=== PATIENT | male | born 1975 | race Caucasian/White ===

== ENCOUNTER 2021-12-12 20:31 | Inpatient (IN) ==
[2021-12-13] MEDS ORDERED: Naloxone 0.4 MG/ML INJ IVP PRN (01:05)
[2021-12-13] MEDS ORDERED: Melatonin 3 MG TABLET PO PRN (01:05)
[2021-12-13] MEDS ORDERED: Dextrose Gel 15 GM/37.5 ML TUBE PO PRN ×2 (01:15)
[2021-12-13] MEDS ORDERED: *HR* Dextrose 50 % in Water (Syg) 50 ML SYRINGE IVP PRN (01:15)
[2021-12-13] MEDS ORDERED: D5% in Water 1,000 ML IVC PRN (01:15)
[2021-12-13] MEDS ORDERED: *HR* Promethazine 25 MG/ML VIAL IM PRN (01:18)
[2021-12-13] MEDS ORDERED: MOM Conc 10 ML UD.LIQ PO PRN (01:18)
[2021-12-13] MEDS ORDERED: Ibuprofen 400 MG TABLET PO PRN (01:18)
[2021-12-13] MEDS ORDERED: Saliva Stimulant 44.3ml BOTTLE PO PRN (02:21)
[2021-12-13] MEDS: *HR* OxyCODONE Immed Rel 5 MG TABLET PO PRN ×3 (02:30→19:24)
[2021-12-13 04:57] LABS: Basophils # 0.1 K/mcL (0.0-0.2); Basophils % 0.6 %; Eosinophils # 0.2 K/mcL (0.0-0.6); Eosinophils % 2.6 %; Hematocrit 34.6 % (37.5-50.1); Hemoglobin 11.8 g/dL (12.9-16.9); Immature Granulocytes % 0.2 % (0-4); Lymphocytes # 1.7 K/mcL (0.6-4.6); Lymphocytes % 19.1 %; Mean Corpuscular HGB Conc 34.1 g/dL (31.6-35.5); Mean Corpuscular Hemoglobin 29.2 pg (28.0-33.3); Mean Corpuscular Volume 85.6 fL (83.0-100.0); Mean Platelet Volume 8.4 fL (9.4-12.4); Monocytes % 10.6 %; Platelet Count 256 K/mcL (140-400); Red Blood Count 4.04 M/mcL (4.19-5.50); Segmented Neutrophils % 66.9 %
[2021-12-13 05:04] LABS: INR 1.1; Prothrombin Time 11.9 Seconds (9.4-12.1)
[2021-12-13 05:06] LABS: Activated Partial Thrombo Time 29.8 Seconds (26.0-36.0)
[2021-12-13 05:14] LABS: Alanine Aminotransferase 11 Units/L (7-52); Albumin 3.5 g/dL (3.5-5.7); Albumin/Globulin Ratio 1.2 (1.1-2.2); Alkaline Phosphatase 120 Units/L (34-104); Aspartate Amino Transferase 14 Units/L (13-39); BUN/Creatinine Ratio 18 (6-26); Bilirubin,Total 0.4 mg/dL (0.3-1.0); Blood Urea Nitrogen 13 mg/dL (6-20); Calcium 8.2 mg/dL (8.6-10.3); Carbon Dioxide 24 mEq/L (23-29); Chloride 98 mEq/L (98-107); Globulin 2.9 g/dL (2.4-3.5); Glucose 318 mg/dL (70-105); Magnesium 1.8 mg/dL (1.6-2.6); Osmolality,Calculated 280 (280-300); Phosphorous 3.5 mg/dL (2.7-4.5); Sodium 129 mEq/L (136-145); Total Protein 6.4 g/dL (6.4-8.9)
[2021-12-13] MEDS: Nicotine 14 MG PATCH.TD24 TD SCH (08:49)
[2021-12-13] MEDS: Lactobacillus 1 EACH CAP.SPRINK PO SCH ×2 (08:49→19:24)
[2021-12-13] MEDS: Chlorhexidine Rinse 15 ML MOUTHWASH MM SCH ×2 (08:49→19:25)
[2021-12-13] MEDS ORDERED: Insulin DETEMIR 100 UNIT/ML X5UNITS SUBQ SCH (09:00)
[2021-12-13] MEDS ORDERED: Vancomycin 1,250 MG/262.5 ML IV.SOLN IVPB SCH (09:00)
[2021-12-13] MEDS: Insulin LISPRO 300 UNITS/3 ML VIAL SUBQ SCH ×5 (10:11→17:29)
[2021-12-13 17:09] LABS: Amphetamine Screen,Urine Positive ng/mL (Cutoff=1000); Barbiturate Screen,Urine Negative ng/mL (Cutoff=200); Benzodiazepines Screen,Urine Negative ng/mL (Cutoff=200); Cannabinoid Screen,Urine Negative ng/mL (Cutoff = 50); Cocaine Screen,Urine Negative ng/mL (Cutoff= 300); Opiate Screen,Urine Negative ng/mL (Cutoff=300); Phencyclidine Screen,Urine Negative ng/mL (Cutoff=25)
[2021-12-13] MEDS: Vancomycin 1,250 MG/262.5 ML IV.SOLN IVPB SCH (17:29)
[2021-12-13 18:30] LABS: Estimated Average Glucose 266 mg/dl; Hemoglobin A1C 10.9 %
[2021-12-13] MEDS: Insulin DETEMIR 100 UNIT/ML X5UNITS SUBQ SCH (19:25)
[2021-12-14] MEDS: Vancomycin 1,250 MG/262.5 ML IV.SOLN IVPB SCH ×2 (01:56→22:50)
[2021-12-14 04:13] LABS: Basophils # 0.1 K/mcL (0.0-0.2); Basophils % 0.7 %; Eosinophils # 0.3 K/mcL (0.0-0.6); Eosinophils % 4.1 %; Hematocrit 37.4 % (37.5-50.1); Hemoglobin 12.7 g/dL (12.9-16.9); Immature Granulocytes % 0.1 % (0-4); Lymphocytes % 29.1 %; Mean Corpuscular Hemoglobin 29.1 pg (28.0-33.3); Mean Corpuscular Volume 85.8 fL (83.0-100.0); Mean Platelet Volume 8.3 fL (9.4-12.4); Monocytes # 0.7 K/mcL (0.0-1.3); Neutrophils # 3.8 K/mcL (1.6-8.9); Platelet Count 260 K/mcL (140-400); Red Blood Count 4.36 M/mcL (4.19-5.50); Red Cell Distribution Width 11.9 % (11.5-14.5); White Blood Count 6.8 K/mcL (4.3-11.1)
[2021-12-14 04:30] LABS: BUN/Creatinine Ratio 19 (6-26); Blood Urea Nitrogen 13 mg/dL (6-20); Calcium 8.6 mg/dL (8.6-10.3); Carbon Dioxide 27 mEq/L (23-29); Chloride 100 mEq/L (98-107); Glucose 161 mg/dL (70-105); Osmolality,Calculated 282 (280-300); Potassium 4.2 mEq/L (3.5-5.1); Sodium 134 mEq/L (136-145)
[2021-12-14] MEDS ORDERED: Nicotine 2 MG GUM BC PRN ×2 (09:20→20:42)
[2021-12-14] MEDS: Lactobacillus 1 EACH CAP.SPRINK PO SCH ×2 (10:28→21:11)
[2021-12-14] MEDS: *HR* OxyCODONE Immed Rel 5 MG TABLET PO PRN ×3 (10:28→22:24)
[2021-12-14] MEDS: Vancomycin 1,500 MG/265 ML IV.SOLN IVPB SCH ×2 (10:29→18:27)
[2021-12-14] MEDS: Nicotine 14 MG PATCH.TD24 TD SCH (10:32)
[2021-12-14] MEDS: Chlorhexidine Rinse 15 ML MOUTHWASH MM SCH ×2 (10:33→21:11)
[2021-12-14] MEDS: Piperacillin/Tazobactam 3.375 GM in 0.9 % Sodium Chloride Mini Bag 100 ML IVPB SCH ×3 (10:34→23:27)
[2021-12-14] MEDS: Insulin DETEMIR 100 UNIT/ML X5UNITS SUBQ SCH ×2 (11:32→21:11)
[2021-12-14] MEDS: Insulin LISPRO 300 UNITS/3 ML VIAL SUBQ SCH ×3 (11:32→18:05)
[2021-12-14] MEDS ORDERED: *HR* HYDROmorphone PF 0.5 MG/0.5 ML SYRINGE IVP PRN (13:50)
[2021-12-14] MEDS ORDERED: *HR* Midazolam HCl 2 MG/2 ML VIAL ONE (14:10)
[2021-12-14] MEDS ORDERED: Ondansetron 4 MG/2 ML VIAL ONE (14:10)
[2021-12-14] MEDS ORDERED: Lidocaine -MPF 2% 5 ML VIAL ONE (14:10)
[2021-12-14] MEDS ORDERED: *HR* Propofol 200 MG/20 ML VIAL IVP ONE (14:10)
[2021-12-14] MEDS ORDERED: *HR* FentaNYL (PF) 100 MCG/2 ML VIAL ONE (14:10)
[2021-12-15] MEDS: Vancomycin 1,500 MG/265 ML IV.SOLN IVPB SCH ×4 (02:42→21:56)
[2021-12-15] MEDS: *HR* OxyCODONE Immed Rel 5 MG TABLET PO PRN ×3 (04:43→21:14)
[2021-12-15 04:54] LABS: Basophils % 0.3 %; Eosinophils % 0.2 %; Hematocrit 35.9 % (37.5-50.1); Hemoglobin 12.1 g/dL (12.9-16.9); Immature Granulocytes % 0.2 % (0-4); Lymphocytes # 1.4 K/mcL (0.6-4.6); Mean Corpuscular HGB Conc 33.7 g/dL (31.6-35.5); Mean Corpuscular Hemoglobin 28.4 pg (28.0-33.3); Mean Corpuscular Volume 84.3 fL (83.0-100.0); Mean Platelet Volume 8.5 fL (9.4-12.4); Monocytes # 0.6 K/mcL (0.0-1.3); Monocytes % 9.2 %; Neutrophils # 4.3 K/mcL (1.6-8.9); Platelet Count 328 K/mcL (140-400); Red Blood Count 4.26 M/mcL (4.19-5.50); Red Cell Distribution Width 11.8 % (11.5-14.5); Segmented Neutrophils % 68.1 %; White Blood Count 6.3 K/mcL (4.3-11.1)
[2021-12-15 05:13] LABS: BUN/Creatinine Ratio 24 (6-26); Blood Urea Nitrogen 17 mg/dL (6-20); Calcium 8.4 mg/dL (8.6-10.3); Carbon Dioxide 26 mEq/L (23-29); Chloride 99 mEq/L (98-107); Glucose 263 mg/dL (70-105); Osmolality,Calculated 287 (280-300); Potassium 4.4 mEq/L (3.5-5.1); Sodium 133 mEq/L (136-145)
[2021-12-15] MEDS: Piperacillin/Tazobactam 3.375 GM in 0.9 % Sodium Chloride Mini Bag 100 ML IVPB SCH (08:28)
[2021-12-15] MEDS: Chlorhexidine Rinse 15 ML MOUTHWASH MM SCH ×2 (08:28→21:14)
[2021-12-15] MEDS: Insulin DETEMIR 100 UNIT/ML X5UNITS SUBQ SCH ×2 (08:28→21:15)
[2021-12-15] MEDS: Lactobacillus 1 EACH CAP.SPRINK PO SCH ×2 (08:28→21:14)
[2021-12-15] MEDS: Gabapentin 400 MG CAPSULE PO SCH ×3 (08:28→21:14)
[2021-12-15] MEDS: Nicotine 14 MG PATCH.TD24 TD SCH (08:29)
[2021-12-15] MEDS: Insulin LISPRO 300 UNITS/3 ML VIAL SUBQ SCH ×4 (08:30→18:07)
[2021-12-16 05:10] LABS: Basophils # 0.1 K/mcL (0.0-0.2); Basophils % 0.9 %; Eosinophils # 0.4 K/mcL (0.0-0.6); Eosinophils % 6.3 %; Hematocrit 33.2 % (37.5-50.1); Hemoglobin 11.1 g/dL (12.9-16.9); Immature Granulocytes % 0.3 % (0-4); Lymphocytes # 2.8 K/mcL (0.6-4.6); Mean Corpuscular HGB Conc 33.4 g/dL (31.6-35.5); Mean Corpuscular Hemoglobin 28.7 pg (28.0-33.3); Mean Corpuscular Volume 85.8 fL (83.0-100.0); Mean Platelet Volume 8.4 fL (9.4-12.4); Monocytes # 0.5 K/mcL (0.0-1.3); Monocytes % 8.9 %; Neutrophils # 2.1 K/mcL (1.6-8.9); Platelet Count 298 K/mcL (140-400); Red Blood Count 3.87 M/mcL (4.19-5.50); Red Cell Distribution Width 11.9 % (11.5-14.5); Segmented Neutrophils % 35.6 %; White Blood Count 5.8 K/mcL (4.3-11.1)
[2021-12-16 05:33] LABS: BUN/Creatinine Ratio 31 (6-26); Blood Urea Nitrogen 20 mg/dL (6-20); Calcium 8.5 mg/dL (8.6-10.3); Carbon Dioxide 29 mEq/L (23-29); Chloride 104 mEq/L (98-107); Glucose 265 mg/dL (70-105); Magnesium 1.8 mg/dL (1.6-2.6); Osmolality,Calculated 296 (280-300); Sodium 137 mEq/L (136-145)
[2021-12-16] MEDS: Vancomycin 1,500 MG/265 ML IV.SOLN IVPB SCH (06:06)
[2021-12-16 07:34] VITALS: BP 109/67; PULSE 69; TEMP 97.8; O2SAT 96
[2021-12-16] MEDS: Gabapentin 400 MG CAPSULE PO SCH ×2 (08:17→14:39)
[2021-12-16] MEDS: Lactobacillus 1 EACH CAP.SPRINK PO SCH (08:17)
[2021-12-16] MEDS: *HR* OxyCODONE Immed Rel 5 MG TABLET PO PRN ×2 (08:17→14:39)
[2021-12-16] MEDS: Chlorhexidine Rinse 15 ML MOUTHWASH MM SCH (08:17)
[2021-12-16] MEDS: Insulin LISPRO 300 UNITS/3 ML VIAL SUBQ SCH ×2 (08:19→13:00)
[2021-12-16] MEDS ORDERED: Insulin DETEMIR 100 UNIT/ML X5UNITS SUBQ SCH (09:00)
[2021-12-16] MEDS ORDERED: Sulfamethoxazole/Trimeth DS 1 EACH TABLET PO ONE (10:05)
[2021-12-16] MEDS: Nicotine 14 MG PATCH.TD24 TD SCH (10:21)
== END 2021-12-16 18:03 | disposition home or self-care (01) | DRG 710 ==
LOC: 4WAOSI → SUATTDRO 12-13 00:24
PROVIDERS: ADMIT Internal Medicine; ATTEND Pharmacist